=== PATIENT | male | born 1975 | race Two or more races ===

== ENCOUNTER 2018-08-09 20:12 | Emergency (ER) | payer SELFPAY ==
[~2018-08-09] VITALS: Ht 170.2 cm; Wt 70.3 kg
[2018-08-10] MEDS ORDERED: KETOROLAC TROMETH 60MG/2ML VIAL IM ONE (03:15)
[2018-08-10 04:38] LABS: INR 0.99 (0.9-1.15); Partial Thromboplastin Time 27.9 sec (23.78-33.04); Prothrombin Time 10.6 sec (9.27-12.13)
[2018-08-10 04:41] LABS: Chloride 105 mmol/L (98-107); Potassium 4.4 mmol/L (3.5-5.1); Sodium 139 mmol/L (136-145)
[2018-08-10 04:54] LABS: Anion Gap 4 (5-15); BUN/Creatinine Ratio 20.5; Blood Urea Nitrogen 18 mg/dL (7-18); Calcium 8.8 mg/dL (8.5-10.1); Carbon Dioxide 30 mmol/L (21-32); GFR African American 121 mL/min; GFR Non-African American 100 mL/min; Glucose 94 mg/dL (74-106)
[2018-08-10] MEDS ORDERED: IODIXANOL 320MG/ML 100ML BTL IV ONE (06:50)
[2018-08-10 10:54] VITALS: BP 113/70
== END 2018-08-10 10:55 | disposition home or self-care (01) ==
LOC: ER 20:17
DX: R07.89 Other chest pain (principal); Z90.49 Acquired absence of other specified parts of digestive tract
CPT/HCPCS: 36415; 71046; 71111; 71275; 74176; 80048; 84484; 85379; 85610; 85730; 94761; 96372; 99284; J1885; Q9967